=== PATIENT | female | born 1945 | race Asian ===

== ENCOUNTER 2020-02-09 21:21 | Emergency (ER) | payer MEDICARE ==
[~2020-02-09] VITALS: Ht 152.4 cm; Wt 74.8 kg
--- NOTE | 2020-02-09 21:35 | NUR ---
ED Nurse Note: Recieved pt walk in from home with c/o abdminal pain x 1 day with nausea and emesis x 1, pt rates pain at 8/10 and aching, denies chest pain, sob, or fevers, pt also denies diarrhea or any other complaints, pt is ambulatory, urine sample collected, pt gowned and placed on cardiac monitoring, MD at bedside seeing pt, will resume care as ordered and continue to closely monitor.
[2020-02-09] MEDS ORDERED: Hydromorphone 0.5mg/0.5ml inj IVP ONE (21:45)
[2020-02-09] MEDS ORDERED: Mylanta II UD 30ml ORAL ONE (21:45)
[2020-02-09] MEDS ORDERED: Omnipaque-300 100ml vial INJ PRN (21:45)
--- NOTE | 2020-02-09 21:49 | Emergency Room Report ---
History of Present Illness General Chief Complaint: Abdominal Pain Source: Patient (Jose Luis Ulloa MD) Present Illness HPI 74-year-old female history of diabetes, hypertension presents with vague epigastric discomfort nausea, started at 4 PM has been constant patient feels a bloating sensation no known aggravating alleviating factors severity is moderate, constant patient endorses that she had sardines in the morning no fevers no chills she feels nauseous no diarrhea chest pain or shortness of breath patient presents for evaluation and treatment (Jose Luis Ulloa MD) Allergies: Coded Allergies: PENICILLINS (Verified Allergy, Unknown, 02/09/20) COVID-19 Screening Contact w/high risk pt: No Experienced COVID-19 symptoms?: No COVID-19 Testing performed OPHTHALMIC TECHNICIAN APPRENTICE: No (Jose Luis Ulloa MD) Patient History Past Medical History: see triage record Reviewed Nursing Documentation: PMH: Agreed; PSxH: Agreed (Jose Luis Ulloa MD) Nursing Documentation-PMH Hx Hypertension: Yes Hx Diabetes: Yes (Jose Luis Ulloa MD) Review of Systems All Other Systems: negative except mentioned in HPI (Jose Luis Ulloa MD) Physical Exam Vital Signs Date Time Temp Pulse Resp B/P (MAP) Pulse Ox O2 Delivery O2 Flow Rate FiO2 02/09/20 21:25 98.2 77 18 151/58 (89) 99 Room Air Sp02 EP Interpretation: reviewed, normal General Appearance: well appearing, no apparent distress, alert Head: normocephalic, atraumatic Eyes: bilateral eye PERRL, bilateral eye EOMI ENT: uvula midline, moist mucus membranes Neck: supple, thyroid normal, supple/symm/no masses Respiratory: lungs clear, no respiratory distress, no retraction, no accessory muscle use Cardiovascular #1: normal peripheral pulses, regular rate, rhythm, no edema, no gallop, no murmur Gastrointestinal: non tender, soft, no guarding, no rebound Musculoskeletal: normal inspection Neurologic: alert, oriented x3 Psychiatric: mood/affect normal Skin: no rash, warm/dry (Jose Luis Ulloa MD) Medical Decision Making Diagnostic Impression: Primary Impression: Abdominal discomfort, epigastric Additional Impressions: Cholelithiasis Qualified Codes: K80.20 - Calculus of gallbladder without cholecystitis without obstruction Ventral hernia Qualified Codes: K43.9 - Ventral hernia without obstruction or gangrene ER Course 74-year-old female presents with vague abdominal discomfort differential diagnosis includes ACS, pneumonia, gastroenteritis patient did have sardines earlier in the morning. Plan for broad work-up given vague symptoms Patient signed out to night doctor Dr. Borden (Jose Luis Ulloa MD) ER Course Signed out to me. She presents with epigastric discomfort. Laboratory data unremarkable. CT scan signed out to me. CT scan showed a large anterior abdominal wall hernia with small bowel contents. It said that is possible incarceration but there is no evidence of that. Is easily reducible. Patient has no pain over that area. Is a chronic problem. She also has gallstone. Pain is well controlled. Will discharge home. (Cachorro Borden MD) EKG Diagnostic Results Troponin ordered: Yes When was troponin ordered?: Feb 09, 2020 - 2131 EKG Time: 22:12 EP Interpretation: NSR, rate 78, QTc 487, no acute ST elevations, normal axis (Jose Luis Ulloa MD) Rhythm Strip Diag. Results Rhythm Strip Time: 22:14 Rate: 80 Rhythm: NSR, no PVC's, no ectopy (Jose Luis Ulloa MD) CT/MRI/US Diagnostic Results CT/MRI/US Diagnostic Results : Imaging Test Ordered: CT abdomen pelvis Impression Read by radiologist. Large abdominal wall hernia with small bowel content. Possible small bowel incarceration. Cholelithiasis. (Cachorro Borden MD) Last Vital Signs Date Time Temp Pulse Resp B/P (MAP) Pulse Ox O2 Delivery O2 Flow Rate FiO2 02/09/20 21:25 98.2 77 18 151/58 (89) 99 Room Air (oJse Luis Ulloa MD) Status: improved (Cachorro Borden MD) Disposition: HOME, SELF-CARE Condition: Stable Scripts Omeprazole (OMEPRAZOLE) 40 Mg Capsule. 40 MG ORAL TWICE A DAY, #30 CAP Prov: Cachorro Borden MD 02/09/20 Referrals: [facility] (PCP) Patient Instructions: Abdominal Pain, Adult Additional Instructions: Follow-up with your doctor in 7 days. Return if symptoms worsen. Jose Luis Ulloa MD Feb 09, 2020 21:49 Cachorro Borden MD Feb 09, 2020 23:51
[2020-02-09 22:00] VITALS: BP 144/61
[2020-02-09 22:05] LABS: APPEARANCE,URINE CLEAR; COLOR,URINE PALE YELLOW
[2020-02-09 22:06] LABS: BILIRUBIN, URINE NEGATIVE (NEGATIVE); GLUCOSE, URINE (UA) 3+ (NEGATIVE); KETONES,URINE 1+ (NEGATIVE); LEUKOCYTE ESTERASE ,URINE 1+ (NEGATIVE); NITRITE,URINE NEGATIVE (NEGATIVE); PROTEIN,URINE 3+ (NEGATIVE); UROBILINOGEN,URINE NORMAL MG/DL (0.0-1.0)
[2020-02-09 22:23] LABS: BASOPHILS % (AUTO) 0.6 % (0.0-2.0); EOSINOPHILS % (AUTO) 0.2 % (0.0-3.0); HEMATOCRIT 40.4 % (37.0-47.0); HEMOGLOBIN 13.6 G/DL (12.0-16.0); LYMPHOCYTES % (AUTO) 13.2 % (20.0-45.0); MEAN CORPUSCULAR VOLUME 88 FL (80-99); PLATELET COUNT 241 K/UL (150-450); RED BLOOD COUNT 4.58 M/UL (4.20-5.40); RED CELL DISTRIBUTION WIDTH 13.4 % (11.6-14.8); WHITE BLOOD COUNT 13.7 K/UL (4.8-10.8)
[2020-02-09 22:38] LABS: INR 0.9 (0.9-1.1)
--- NOTE | 2020-02-09 23:00 | NUR ---
ED Nurse Note: Pt continues to rest quietly in bed, meds given slightly effective and pt c/o pain again, MD aware, new med orders given and pt is being taken to imaging for CT-Scan, IV site patent, v/s stable, no sob or labored breathing, nad noted during pt transport, will resume care when pt returns to department.
[2020-02-09] MEDS ORDERED: Morphine Sulfate 4mg/ml Inj (IV USE ONLY) ONE (23:04)
[2020-02-09] MEDS ORDERED: Morphine Sulfate 4mg/ml Inj (IV USE ONLY) IVP ONE (23:15)
--- NOTE | 2020-02-09 23:28 | Diagnostic Imaging Report ---
EXAM: CT Abdomen and Pelvis Without Intravenous Contrast CLINICAL HISTORY: ABD PAIN TECHNIQUE: Axial computed tomography images of the abdomen and pelvis without intravenous contrast. CTDI is 9.6 mGy and DLP is 482.2 mGy-cm. One or more of the following dose reduction techniques were used: automated exposure control, adjustment of the mA and/or kV according to patient size, use of iterative reconstruction technique. COMPARISON: No relevant prior studies available. FINDINGS: Lung bases: Unremarkable. No mass. No consolidation. ABDOMEN: Liver: Unremarkable. Gallbladder and bile ducts: Gallstones are noted within the gallbladder. No ductal dilation. Pancreas: Unremarkable. No ductal dilation. Spleen: Unremarkable. No splenomegaly. Adrenals: Unremarkable. No mass. Kidneys and ureters: Exophytic right renal cyst. No further follow-up imaging is required. No obstructing stones. No hydronephrosis. Stomach and bowel: Prior right hemicolectomy. Large abdominal wall anterior hernia with a fascial defect measuring 6.3 cm. Small bowel contents are demonstrated within the hernia with evidence of proximal small bowel dilatation measuring up to 3.6 cm. There is mild perienteric inflammatory change and mesenteric inflammatory change. PELVIS: Appendix: See above. Bladder: Unremarkable. No stones. Reproductive: Unremarkable as visualized. ABDOMEN and PELVIS: Intraperitoneal space: Nonspecific cystlike structure within the mid abdomen in region of postsurgical change measuring 4.9 x 5.6 x 3.9 cm. No free air. No significant fluid collection. Bones/joints: Degenerative disc disease in the lumbar spine, most prominent at L4-L5. No severe canal narrowing. No acute fracture. No dislocation. Soft tissues: See above. Vasculature: Atherosclerotic vascular disease. No abdominal aortic aneurysm. Lymph nodes: Unremarkable. No enlarged lymph nodes. IMPRESSION: 1. Large anterior abdominal wall hernia with small bowel contents. Perienteric and mesenteric edema suggestive of small bowel incarceration. Dilation of small bowel suggestive of resultant small bowel obstruction. 2. Cholelithiasis. 3. Nonspecific cystlike structure in the mid abdomen in region of postsurgical change. May represent a postoperative seroma. Differential also includes duplication cyst.
[2020-02-09 23:42] LABS: ALANINE AMINOTRANSFERASE 34 U/L (12-78); ALBUMIN 3.9 G/DL (3.4-5.0); ALBUMIN/GLOBULIN RATIO 1.2 (1.0-2.7); ALKALINE PHOSPHATASE 71 U/L (46-116); BILIRUBIN,TOTAL 0.5 MG/DL (0.2-1.0); BLOOD UREA NITROGEN 21 mg/dL (7-18); CALCIUM 9.7 MG/DL (8.5-10.1); CARBON DIOXIDE 28 MMOL/L (21-32); CHLORIDE 98 MMOL/L (98-107); CREATININE 1.5 MG/DL (0.55-1.30); POTASSIUM 4.3 MMOL/L (3.5-5.1); SODIUM 134 MMOL/L (136-145)
[2020-02-09] MEDS ORDERED: OMEPRAZOLE40 M1 ORAL (23:51)
[2020-02-10] VITALS: BP 139/68
--- NOTE | 2020-02-10 | NUR ---
ER DISCHARGE NOTE: Patient is cleared to be discharged per ERMD, pt is aox4, on room air, with stable vital signs. pt was given dc and prescription instructions, pt was able to verbalize understanding, pt id band and iv site removed without complications. pt is able to ambulate with steady gait. pt took all belongings. pt nephew present to drive pt.
[2020-02-10 00:01] LABS: ASPARTATE AMINO TRANSFERASE 17 U/L (15-37)
[2020-02-10 00:05] VITALS: BP 144/61
--- NOTE | 2020-02-10 11:23 | Diagnostic Imaging Report ---
Procedure: XRAY Chest 1v Reason for study: Chest pain. Comparison films: None. FINDINGS: A single one view chest is obtained. Vascularity is normal. The lung avelar are clear bilaterally. Cardiac and mediastinal silhouette are within normal limits. CP angles are sharp. The bony thorax appear unremarkable. IMPRESSION: NO ACUTE CARDIOPULMONARY DISEASE.
--- NOTE | 2020-02-10 16:58 | Cardiology Report ---
APPROVED REPORT EKG Measurement Heart [id number] <Conclusion> Sinus rhythm with 1st degree AV block Otherwise normal ECG
== END 2020-02-10 00:05 | disposition home or self-care (01) ==
LOC: EMR 21:42
DX: K80.20 Calculus of gallbladder without cholecystitis without obstruction (principal); K43.9 Ventral hernia without obstruction or gangrene; E11.9 Type 2 diabetes mellitus without complications; I10 Essential (primary) hypertension; Z88.0 Allergy status to penicillin
CPT/HCPCS: 36415; 71045; 74176; 80053; 81003; 83690; 84484; 85025; 85610; 85730; 93005; 96361; 96374; 96375; 99284; J1170; J2270; J2405; J7030